=== PATIENT | female | born 1955 ===

== ENCOUNTER 2018-07-17 07:12 | Observation (INO) | payer BC ==
[2018-07-17 07:26] VITALS: BMI 19.3
[2018-07-17] MEDS ORDERED: Lactated Ringer's 1,000 ML IV ONE ×2 (08:16→09:45)
[2018-07-17 08:29] LABS: BASO % 0.2 % (0.0-2.0); EOS % 0.7 % (0.0-4.0); LYMPH # 0.7 K/uL (1.0-4.3); LYMPH % 12.5 % (20.0-40.0); MEAN CELL VOLUME 95.2 fl (81.0-99.0); MEAN CORPUSCULAR HEMOGLOBIN 31.4 pg (27.0-31.0); MEAN PLATELET VOLUME 8.2 fl (7.2-11.7); MONO # 0.5 K/uL (0.0-0.8); MONO % 8.3 % (0.0-10.0); NEUT # 4.5 K/uL (1.8-7.0); NEUT % 78.3 % (50.0-75.0); NRBC % 0.1 % (0.0-0.0); RBC 4.15 Mil/uL (3.80-5.20); RED CELL DISTRIBUTION WIDTH 13.2 % (11.5-14.5); WHITE BLOOD COUNT 5.7 K/uL (4.8-10.8)
[2018-07-17] MEDS ORDERED: Bupivacaine HCl 0.5% PF (30 ml) Inj ONE (08:31)
[2018-07-17] MEDS ORDERED: Methylene Blue 10 mg/mL(10ml) IV ONE (08:33)
[2018-07-17] MEDS ORDERED: SULFANILAMIDE (AVC) VAG CREAM VG ONE ×3 (08:33→11:50)
[2018-07-17] MEDS ORDERED: Rocuronium 10 mg/ml (5 ml) ONE (09:02)
[2018-07-17] MEDS ORDERED: ePHEDrine 50 mg/ml Inj ONE (09:02)
[2018-07-17] MEDS ORDERED: Succinylcholine 200 mg/10 ml Inj IV ONE (09:02)
[2018-07-17] MEDS ORDERED: Propofol 10 mg/ml Inj (20 ML) ONE (09:02)
[2018-07-17] MEDS ORDERED: Lidocaine 4% (Laryng-O-Jet) Kit MM ONE (09:02)
[2018-07-17] MEDS ORDERED: Midazolam 2 MG/2 ML VIAL ONE (09:02)
[2018-07-17] MEDS ORDERED: Dexamethasone 4 mg/1 ml ONE (09:36)
[2018-07-17] MEDS ORDERED: Gentamicin 80mg/50ml NS 80 MG/50 ML BAG IVPB ONE (09:46)
[2018-07-17] MEDS ORDERED: Gentamicin 80 mg/2mL Inj. IVPB ONE (10:00)
[2018-07-17] MEDS ORDERED: Bupivacaine 0.5% Inj(30mL) IJ ONE ×2 (10:10)
[2018-07-17] MEDS ORDERED: Desflurane Inhalation Anesthetic Liq (240 ml) ONE (10:17)
[2018-07-17] MEDS ORDERED: Neostigmine 1:1000 (1 mg/ml) Inj ONE (10:57)
[2018-07-17] MEDS ORDERED: HEMOSTATIC MATRIX 10 ML DIS.NEEDLE TOP ONE ×2 (11:00→11:45)
[2018-07-17] MEDS ORDERED: Oxycodone/Acetaminophen 5/325 mg Tab PO PRN (12:07)
--- NOTE | 2018-07-17 12:13 | PCM.SURG1 ---
Surgeon's Initial Post Op Note - Surgeon's Notes Surgeon: Dr. Romero Bar Porter: Dr. Balaji Al Type of Anesthesia: General Endo Pre-Operative Diagnosis: 63 yo with Postmenopausal Bleeding, chronic pelvic pain Operative Findings: av uterus , multiple adhesion and Right Ovarian cyst Post-Operative Diagnosis: Same as above Operation Performed: Robotic Total hysterectomy/BSO/ Cystoscopy Specimen/Specimens Removed: uTERUS, CERVIX, bILATERAL OVARIES AND TUBES Estimated Blood Loss: EBL {In ML}: 50 Blood Products Given: N/A Drains Used: No Drains Post-Op Condition: Good Date of Surgery/Procedure: 07/17/18 Time of Surgery/Procedure: 12:13
[2018-07-17] MEDS ORDERED: DiphenhydrAMINE 50 mg/ml Inj IVP PRN (12:24)
[2018-07-17] MEDS ORDERED: HYDROmorphone 0.5 mg/0.5 ml ISec IVP PRN (12:24)
[2018-07-17] MEDS ORDERED: Lactated Ringer's 1,000 ML IV SCH (12:30)
[2018-07-17] MEDS: Sodium Chloride 0.9% 1,000 ML IV SCH (20:30)
[2018-07-18 04:36] VITALS: RESP 18
[2018-07-18 07:48] VITALS: BP 95/58; PULSE 69; TEMP 98.3; O2SAT 100
[2018-07-18] MEDS: Sodium Chloride 0.9% 1,000 ML IV SCH (10:00)
--- NOTE | 2018-07-25 08:17 | OP ---
OPERATIVE REPORT -Operative Report Date of Procedure: 07/17/2018 Surgeon: Dr. Romero Clarifier Operator Helper: Dr. Jorge Al Anesthesiologist: Dr. Johnson Type of Anesthesia: General Endo Pre-Operative Diagnosis: 63 yo with Postmenopausal Bleeding, chronic pelvic pain Operative Findings: av uterus , multiple adhesion and Right Ovarian cyst Post-Operative Diagnosis: Same as above Operation Performed: Robotic Total hysterectomy/BSO/ Cystoscopy Description of Procedure: The patient was taken to the operating room and given anesthesia to found adequate. She was then placed in dorsal lithotomy position, prepped and draped in a normal sterile fashion. A Wilks catheter was placed into the vagina. A weighted speculum was placed into the vagina as well. A single-tooth tenaculum was used to grab the anterior lip of the cervix. The cervical os was then dilated to approximately 8 cm with King dilators. Upon dilation, the medium-sized Vcare device was then utilized. Once that was in place and it was secure placement, all instruments were removed from the vagina and attention was then turned to the abdomen. In that particular instance, once that was performed, a Veress needle was placed in the abdominal cavity. Through the Veress needle, carbon dioxide was infused until pseudo-pneumoperitoneum was obtained. The Veress needle was then removed and a supraumbilical incision was extended. The trocar and the sleeve were then placed in the abdomen without any difficulty. The trocar was then removed and the robotic laparoscopy was then placed in the abdominal cavity. The pelvis was then examined. Normal ovaries and tubes, but as far as the consent, she requested her ovaries to be removed together with her tubes. A local anesthesia was then instilled at the site of the other ports prior to placing the surgical port. Two 8 mm surgical ports were then placed just inferior to the umbilicus and lateral to the rectus abdominis muscle bilaterally. These ports were then put in the abdominal cavity under direct visualization. The assistant media planner port was then placed just beneath ribs in the left upper quadrant of the abdomen. The da Soo robot was then placed with the surgical port and the left arm was placed the plasma-kinetic device and the right with the hot scissors. Due to the fact that it was in that particular instance, the infundibular ligament was isolated on the left side, was cauterized with 3 consecutive areas with the PK. The infundibular ligament was then cut and the left adnexa was then from the pelvic sidewall using the PK and the hot scissors. Excellent hemostasis was noted. The round ligament on the left side was then cauterized and cut. The left side of the vesicouterine peritoneum was identified and formed the left side of the bladder flap. The uterine vascularization was then isolated and cauterized. Again, in that particular instance, then the right infundibular pelvic ligament was identified. It was then cauterized 3 times with the PK and cut. Excellent hemostasis was noted. The right ligament was then cauterized in 3 consecutive areas and cut with a PK. The vesicouterine peritoneum on the right side was then excised in a fashion forming what is known as a bladder flap. The bladder was then pushed down off the lower uterine segment without any difficulty. The uterine vascularization on the right side was then cauterized, excellent hemostasis was noted. The ring was identified anterior and an anterior colpotomy was then performed. The uterine vascularization was cauterized bilaterally as the colpotomy was extended. After complete circumscribing the scissors from the vaginal cuff, the uterus and the left and the right adnexa were removed through the vagina. In that particular instance, the vaginal cuff was closed with running V-Loc sutures. The pelvis was then irrigated copiously with normal saline. Excellent hemostasis was noted. In that particular instance, upon completion, the FloSeal was then placed at the vaginal cuff. Excellent hemostasis was noted. The 12-mm supraumbilical surgical port was removed and the incision was placed in layers with 2-0 Vicryl and the skin was closed with 4-0 Monocryl. All the surgical ports were removed under direct visualization. In that particular instance, indigo carmine was then given intravenously prior to performing the cystoscopy. Both ureteral orifices were identified. There was noted to be blue dye coming from both ureteral orifices. In that particular instance, once that was completed, the cystoscopy was then removed. All instruments from the vagina were then removed. The Wilks was placed back into the bladder and as far as vaginal packing was placed. All sponges, needles and instrument counts were correct x2. The patient was then taken to the recovery in stable condition and instructed to follow up in the office in approximately a week. Specimen/Specimens Removed: uTERUS, CERVIX, bILATERAL OVARIES AND TUBES Estimated Blood Loss: EBL {In ML}: 50 Blood Products Given: N/A Drains Used: No Drains Post-Op Condition: Good Date of Surgery/Procedure: 07/17/18 Time of Surgery/Procedure: :13 Remedios Romero MD
--- NOTE | 2018-07-25 09:07 | OP ---
PROCEDURE DATE: PREOPERATIVE DIAGNOSIS: A 63-year-old female with postmenopausal bleeding, uterine fibroids, and chronic pelvic pain. POSTOPERATIVE DIAGNOSES: Uterine fibroids, postmenopausal bleeding as well as some adhesions. OPERATION PERFORMED: Robotic total hysterectomy as well as bilateral salpingo-oophorectomy and cystoscopy. SURGEON: Remedios Romero MD [place] MANAGER: Dr. Al TYPE OF ANESTHESIA: General. ESTIMATED BLOOD LOSS: 50 mL. COMPLICATIONS: None. DESCRIPTION OF PROCEDURE: The patient was informed of the risks, benefits, and alternatives of the procedure. Risk factors included infection, bleeding, damage to surrounding organs and tissues, complication from anesthesia and possible . In that particular instance, all questions were answered. The patient understood all the risk factors. Risks factors were explained, but limited to. Informed consent was obtained. She was then taken to the operating room and administered general anesthesia which was found to be adequate. She was then placed in dorsal lithotomy position, prepped and draped in a normal sterile fashion. In that particular instance, following a 70-degree cystoscopy was performed in which we identified the right and the left ureters, and we placed a 14-Welsh ureteral stent and FloSeal in bilateral ureters. Once we completed, the Wilks catheter was then placed into the bladder. A weighted speculum was placed into the vagina. A single-tooth tenaculum was placed in the anterior lip of the cervix. The cervical os was dilated to approximately 6 cm. A VCare device size-small was then placed without any difficulty. Once that was completed, the weighted speculum was placed in the vagina together with the single-tooth tenaculum. Attention was then turned to the umbilicus, and that it was decided to perform a horizontal supraumbilical incision which was made with a scalpel, and the Veress needle was placed in the abdominal cavity. Through the Veress needle, carbon dioxide was infused until a pseudopneumoperitoneum was obtained. The Veress needle was then removed, and supraumbilical incision was extended, and 8-mm trocar and sleeve were then placed in the abdominal cavity without any difficulty. The trocar was then removed, and the robotic laparoscope was placed in the abdominal cavity. The pelvis was examined which demonstrated that she had a diffusely enlarged uterus. The right and left tubes looked normal. There were some adhesions. It was then proceed that local anesthesia was then insufflated at the site of the ports prior to placing the surgical ports. Two 8-cm surgical ports were placed just inferior to the umbilicus and lateral to the rectus abdominal muscle bilaterally. These ports were then put into the abdomen under direct visualization. The senior court office assistant port was then placed just beneath the ribs in the left upper quadrant of the abdomen. The da Soo robot was then placed with the surgical ports. In the left arm, we placed a PlasmaKinetic device and the right with hot scissors. In that particular instance, the left infundibular ligament was isolated and cauterized in three consecutive areas with the PK. The infundibular ligament was then cut. The left adnexa was then just from the pelvic sidewall using the PK and the hot scissors. The ureter was also identified prior to doing that. The round ligament on the left side was then cauterized and cut. The left-sided vesicouterine peritoneum was incised forming the left side of the bladder blade. The left uterine artery was then isolated and cauterized. Excellent hemostasis was noted. The same was then proceeded on the right infundibulopelvic ligament which was isolated and cauterized in three consecutive areas with the PK. The infundibulopelvic ligament was then cut, and the right adnexa was then from the pelvic sidewall, and the ureter was identified. The round ligament was then cauterized in three consecutive areas and cut with the PK. The vesicouterine peritoneum on the right side was then excised forming the bladder flap. The bladder was then pushed down off the low uterine segment without any difficulty. The uterine vascularization on the right side was then cauterized, and the ring was identified anteriorly. Anterior colpotomy was then performed. The uterine vascularization was cauterized bilaterally as the colpotomy was extended. After completely with the scissors from the vagina cuff, the uterus and right and left adnexa were delivered through the vagina. The vaginal cuff was closed with a running V-Loc suture. Upon completion, the pelvis was irrigated copiously with normal saline. Hemostasis was found to be secured. Upon completion, FloSeal was then applied. The surgical ports were removed, and the incision was closed in layers using Endo-Close. The fascia was basically closed with a 1-0 Vicryl. All surgical ports were removed under direct visualization. Excellent hemostasis was noted. The incision was closed with a 3-0 Monocryl. All sponge, needle counts and instrument counts were correct x2. The urine in the Wilks bag was noted to be clear blue. The patient tolerated the procedure well. She was sent in the recovery room in excellent condition. Remedios Romero MD
== END 2018-07-18 12:51 | disposition home or self-care (01) ==
LOC: H.OPSURG 07:12 → H.TEL 12:50 → INTOOBSV 12:50
PROVIDERS: ADMIT Obstetrics & Gynecology; ATTEND Obstetrics & Gynecology
DX: D25.9 Leiomyoma of uterus, unspecified (principal); N83.291 Other ovarian cyst, right side; N73.6 Female pelvic peritoneal adhesions (postinfective); N95.0 Postmenopausal bleeding; N88.8 Other specified noninflammatory disorders of cervix uteri; G89.29 Other chronic pain; Z88.0 Allergy status to penicillin
CPT/HCPCS: 36415; 58575; 85025; 86850; 86900; 88305; 88307; C2615; G0378; J0330; J1100; J1580; J1885; J2001; J2250; J2405; J2704; J2710; J2765; J3010; J7030; J7120; S2900